=== PATIENT | male | born 1985 | race Caucasian/White ===

== ENCOUNTER 2023-04-25 10:08 | Emergency (ER) | payer BC, SELFPAY ==
[2023-04-25 10:26] VITALS: BP 135/78; PULSE 89; RESP 18; TEMP 36.9; O2SAT 97; BMI 25.1
--- NOTE | 2023-04-25 11:38 | ED.GENADULT ---
HPI - General Adult General Chief complaint: Skin/Abscess/Foreign Body Stated complaint: L knee infection Time Seen by Provider: 04/25/23 10:57 History of Present Illness HPI narrative: Patient reports noting ingrown hair around knee pulled this and noticed signs of infection. Has had this before and has treated with Epson salt bath . He tried this but redness and pain persist around left knee. 38-year-old man presenting to the emergency department with complaint of increased pain swelling heat at the left knee. 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 Does recall history of a bursitis around time of high school when he was wrestling. He describes an event where this actually had been inflamed and then traumatized and sounds to have ruptured. He does not recall which knee that was on. He is not otherwise feeling chilled or experiencing nausea or having any fever. He did try a warm Epsom salt water ragged soak yesterday. Yesterday prior to shower popped a pimple/ingrown hair below his knee over the patellar tendon. He is having some pain with flexion but more a pain to light touch for example his pants. There was a spot of redness on the outer left knee when waking this morning and it has rapidly progressed. Related Data Allergies Allergy/AdvReac Type Severity Reaction Status Date / Time Penicillins Allergy Intermediate Hives Verified 05/06/23 17:25 Review of Systems Status of ROS: Reports: 6 or more systems reviewed and unremarkable except as noted in History and below PFSH PFSH Social History Smoking Status: Never smoker Do you use any of these nicotine containing products: None How often do you have a drink containing alcohol: monthly or less How often do you have six or more drinks on one occasion: Never AUDIT-C Alcohol total score: 1 Non-prescribed substance use: denies use Exam Narrative: Exam Narrative: Pleasant. Good energy. Breathing easily and pulse is in a regular rate. Dressed in work attire. Examination of the left knee shows palm sized area of erythema without induration of the skin but with mild calor broadly over his knee. There is very soft fluid I would presume you within the prepatellar bursa. Broad though. Again softly fluctuant. It does not flinch to this exam though does acknowledge that it hurts a great deal to even light touch. Const: Vital Signs, click to edit/add: Vital Signs - 24 hr 04/25/23 10:26 Temperature 98.4 F Pulse Rate [Pulse Oximeter] 89 Respiratory Rate 18 Blood Pressure [Ri ght Upper Arm] 135/78 Pulse Oximetry 97 Oxygen Delivery Me thod Room Air Documenting provider has reviewed patient's vital signs: yes Course Vital Signs Vital signs: Initial Vital Signs Temperature 98.4 F 04/25/23 10:26 Temperature Source Temporal Artery Scan 04/25/23 10:26 Pulse Rate 89 04/25/23 10:26 Respiratory Rate 18 04/25/23 10:26 Blood Pressure 135/78 04/25/23 10:26 Blood Pressure Mean 97 04/25/23 10:26 Pulse Oximetry 97 04/25/23 10:26 Oxygen Delivery Method Room Air 04/25/23 10:26 Vital Signs Temperature 98.4 F 04/25/23 10:26 Pulse Rate 89 04/25/23 10:26 Respiratory Rate 18 04/25/23 10:26 Blood Pressure 135/78 04/25/23 10:26 Pulse Oximetry 97 04/25/23 10:26 Oxygen Delivery Method Room Air 04/25/23 10:26 Temperature 98.4 F 04/25/23 10:26 Pulse Rate 89 04/25/23 10:26 Respiratory Rate 18 04/25/23 10:26 Blood Pressure 135/78 04/25/23 10:26 Pulse Oximetry 97 04/25/23 10:26 Oxygen Delivery Method Room Air 04/25/23 10:26 Medical Decision Making MDM Narrative Medical decision making narrative: I would presume some degree of prepatellar bursitis. I think there is also an evolving mild cellulitis over the skin. I think it would be prudent to treat with antibiotics. I do not think this is a septic bursitis. Will give a dose of Rocephin here in the emergency department continue treatment with cephalexin. Would consider doxycycline however spent extended time outdoors and probably this is strep organism. I will not collect fluid from this bursa at this point. It does not appear to involve the knee joint. See patient discharge plan Discharge Plan Discharge Clinical Impression: Bursitis, Cellulitis Patient Disposition: Home, Self-Care Additional Instructions: Try to avoid traumatizing/irritating this area, rubbing on it. I think it will just perpetuate inflammation. You might want to cold pack it if it seems to make it feel better. Otherwise I would do warm Epsom salt water soaks once or twice a day. Return for marked increase in pain or redness or swelling/tension in the skin, fever. I do not expect it to look much better otherwise for 2 days. Cephalexin from [facility] as discussed. Take this for 8 days. You do not need to take another antibiotic dose until later tonight; frankly the Rocephin should cover you till tomorrow morning. Stand Alone Forms: MyHealth Info Instructions
[2023-04-25] MEDS: LIDOCAINE 1% 5 ml (pf) 5 ML VIAL 2.1 ML IM (12:10)
[2023-04-25] MEDS: cefTRIAXone 1 GM VIAL IM (12:10)
== END 2023-04-25 12:37 | disposition home or self-care (01) ==
LOC: ED 12:09
PROVIDERS: Emergency Provider Family Medicine
DX: M70.52 Other bursitis of knee, left knee (principal); L03.116 Cellulitis of left lower limb
CPT/HCPCS: 96372; 99283; 99284; J0696